=== PATIENT | male | born 1975 | race Caucasian/White ===

== ENCOUNTER 2017-07-11 12:57 | Emergency (ER) | payer OTHER ==
[2017-07-11 13:12] VITALS: TEMP 37
[2017-07-11] MEDS ORDERED: SODIUM CHLORIDE 0.9% 500ML 500 ML IV STA (13:36)
[2017-07-11] MEDS ORDERED: SODIUM CHLORIDE 0.9% 1000ML 1,000 ML IV ONE (13:45)
--- NOTE | 2017-07-11 13:50 | EMERGENCY ROOM VISIT NOTE ---
History First contact with patient: 13:17 Chief Complaint: DIARRHEA Stated Complaint: DIARRHEA FOR PAST MONTH Nursing Triage Summary: pt reports diarrhea x 1 month. pt reports he has been to [facility] and [facility]. pt reports abd pain and that he has lost approx 40 pounds in the past 2-3 weeks. History of Present Illness The patient is a 42 year old male who presents to the Emergency Room with complaints of severe diarrhea that has been going on for approximately 1 month. The patient reports sometimes going up to 20 times per day. He has seen his family physician in addition to a GI specialist. He has had a colonoscopy, which was reportedly normal. He has also had blood work, CT scans and stool cultures. No abnormalities were noted. The patient denies any fever, vomiting or chills. He does get abdominal cramping particularly in the upper abdomen before his bowel movements. His daughter was sick with vomiting prior to his illness. She did not have any diarrhea. Her vomiting only lasted 24 hours. The patient reports feeling dehydrated. He denies any recent travel. He was on antibiotics for an infection in his left leg. He has tested negative for C. difficile. Review of Systems 10 system review performed and negative unless noted in HPI or below Past Medical/Surgical History History of DVTs, on chronic anticoagulation Family History Cardiac disease Social History Smoking Status: Never Smoker Alcohol Use: none Drug Use: none Occupation Status: employed Current/Historical Medications Scheduled Colestipol Hcl (Colestid), 4 GM PO QID Pancrelipase (Lipase-Protease- (Creon), 36,000 UNITS PO TIDM Probiotic Product (Probiotic), 1 TAB PO DAILY Rivaroxaban (Xarelto), 20 MG PO QPM Physical Exam Vital Signs Date Time Temp Pulse Resp B/P (MAP) Pulse Ox O2 Delivery O2 Flow Rate FiO2 07/11/17 16:55 71 16 133/82 99 07/11/17 16:06 71 16 133/82 99 Room Air 07/11/17 14:42 81 18 124/76 96 Room Air 07/11/17 13:12 37.0 99 20 135/79 96 Room Air Physical Exam VITALS: Vitals are noted on the nurse's note and reviewed by myself. Vital signs stable. GENERAL: 42-year-old male, in no acute distress, nondiaphoretic, well-developed well-nourished. SKIN: The skin was without rashes, erythema, edema, or bruising. There is no tenting of the skin. Capillary reflex less than 2 seconds. HEAD: Normocephalic atraumatic. EYES: Extraocular movements intact. MOUTH: Mucous membranes dry. NECK: Supple without nuchal rigidity. No lymphadenopathy. Cervical spine is nontender. No JVD. HEART: Regular rate and rhythm without murmurs gallops or rubs. LUNGS: Clear to auscultation bilaterally without wheezes, rales or rhonchi. No accessory muscle use. ABDOMEN: Bowel sounds present, but hypoactive. Tenderness palpation with deep palpation in the left upper quadrant. Without organomegaly. No guarding or rebound tenderness. MUSCULOSKELETAL: No muscle atrophy, erythema, or edema noted. Strength 5/5 throughout. NEURO: Patient was alert and oriented to person place and time. Normal sensation to touch. No focal neurological deficits. Medical Decision & Procedures Laboratory Results 07/11/17 13:44 Red Blood Count 5.30, Mean Corpuscular Volume 88.9, Mean Corpuscular Hemoglobin 30.8, Mean Corpuscular Hemoglobin Concent 34.6, Mean Platelet Volume 10.4, Neutrophils (%) (Auto) 65.6, Lymphocytes (%) (Auto) 22.9, Monocytes (%) (Auto) 8.4, Eosinophils (%) (Auto) 2.6, Basophils (%) (Auto) 0.3, Neutrophils # (Auto) 4.05, Lymphocytes # (Auto) 1.41, Monocytes # (Auto) 0.52, Eosinophils # (Auto) 0.16, Basophils # (Auto) 0.02 07/11/17 13:44 Test 07/11/17 13:44 White Blood Count 6.17 K/uL (4.8-10.8) Red Blood Count 5.30 M/uL (4.7-6.1) Hemoglobin 16.3 g/dL (14.0-18.0) Hematocrit 47.1 % (42-52) Mean Corpuscular Volume 88.9 fL (80-100) Mean Corpuscular Hemoglobin 30.8 pg (25-34) Mean Corpuscular Hemoglobin Concent 34.6 g/dl (32-36) Platelet Count 158 K/uL (130-400) Mean Platelet Volume 10.4 fL (7.4-10.4) Neutrophils (%) (Auto) 65.6 % Lymphocytes (%) (Auto) 22.9 % Monocytes (%) (Auto) 8.4 % Eosinophils (%) (Auto) 2.6 % Basophils (%) (Auto) 0.3 % Neutrophils # (Auto) 4.05 K/uL (1.4-6.5) Lymphocytes # (Auto) 1.41 K/uL (1.2-3.4) Monocytes # (Auto) 0.52 K/uL (0.11-0.59) Eosinophils # (Auto) 0.16 K/uL (0-0.5) Basophils # (Auto) 0.02 K/uL (0-0.2) RDW Standard Deviation 45.3 fL (36.4-46.3) RDW Coefficient of Variation 13.8 % (11.5-14.5) Immature Granulocyte % (Auto) 0.2 % Immature Granulocyte # (Auto) 0.01 K/uL (0.00-0.02) Anion Gap 6.0 mmol/L (3-11) Estimated GFR () 109.2 Estimated GFR (Non- 94.2 BUN/Creatinine Ratio 9.4 (10-20) Calcium Level 8.9 mg/dl (8.5-10.1) Magnesium Level 2.1 mg/dl (1.8-2.4) Total Bilirubin 1.6 mg/dl (0.2-1) Direct Bilirubin 0.3 mg/dl (0-0.2) Aspartate Amino Transf (AST/SGOT) 31 U/L (15-37) Alanine Aminotransferase (ALT/SGPT) 86 U/L (12-78) Alkaline Phosphatase 110 U/L (45-117) Total Protein 7.0 gm/dl (6.4-8.2) Albumin 3.7 gm/dl (3.4-5.0) Globulin 3.3 gm/dl (2.5-4.0) Albumin/Globulin Ratio 1.1 (0.9-2) Amylase Level 48 U/L (25-115) Lipase 200 U/L (73-393) Date/Time Source Procedure Growth Status 07/11/17 16:45 Stool C.difficile Toxin B Gene (PCR) - Final No C. difficile toxin B gene detected Complete Medications Administered Medications (Trade) Dose Ordered Sig/Rossy Route Start Time Stop Time Status Last Admin Dose Admin Sodium Chloride 1,000 ml @ 999 mls/hr Q1H1M ONCE IV 07/11/17 13:45 07/11/17 14:45 DC 07/11/17 13:49 999 MLS/HR Sodium Chloride 500 ml @ 999 mls/hr Q31M STAT IV 07/11/17 13:36 07/11/17 14:06 DC 07/11/17 13:49 999 MLS/HR ED Course Patient was seen and examined Vital signs including blood pressure were reviewed medications list was verified with patient Labs were obtained, and a saline lock was established The patient was hydrated with 1500 and also normal saline. The patient was reevaluated and resting comfortably in bed. We discussed the results of his workup. He voiced understanding. The case was discussed with Dr. Velasquez from GI. I reviewed discharge instructions the patient. They voiced understanding and had no further questions. Medical Decision Differential diagnosis: Infectious diarrhea, inflammatory bowel disease, pancreatic disease, gallbladder disease, This patient is a 42-year-old male that presents to the emergency department with chronic diarrhea for one month. He does not have any other infectious symptoms. The patient has had an extensive workup including a colonoscopy. Of note, Crohn's disease does run in his family. His workup in the emergency department is fairly unremarkable. His total bilirubin was slightly elevated. He was told that he has a history of fatty liver by his GI specialist.. There is no leukocytosis. He is afebrile. He is adequately taking in liquids. I believe he is stable to be discharged home. The patient was hydrated in the emergency department. He was referred to GI for further testing, possibly an upper endoscopy, small bowel follow-through for capsule endoscopy to further assess his diarrhea. This chart was completed in part utilizing [employer] Voice Recognition software. Attempts were made to minimize the grammatical errors, random word insertions, pronoun errors and incomplete sentences. Any formal questions or concerns about the content, text or information contained within the body of this dictation should be directly addressed to the provider for clarification. Medication Reconcilliation Current Medication List: was personally reviewed by me Consults Time Called: Dr. Velasquez Impression Primary Impression: Chronic diarrhea Departure Information Dispostion Home / Self-Care Condition GOOD Referrals Asim Mohr M.D. (PCP) Alvarez Velasquez MD Patient Instructions [facility] Additional Instructions You had been evaluated in the emergency department for diarrhea. Please continue your current medications as prescribed. Please call Dr. Velasquez's office for a follow-up appointment. Increase your fluids to stay hydrated Please return to the emergency department with any new or worsening symptoms.
[2017-07-11] MEDS ORDERED: RIVA1TAB4 PO (13:53)
[2017-07-11] MEDS ORDERED: COLE1TAB PO (13:53)
[2017-07-11] MEDS ORDERED: PANC6000 PO (13:53)
[2017-07-11] MEDS ORDERED: PROB1TAB16 PO (13:53)
[2017-07-11 14:07] LABS: BASO % 0.3 %; BASO ABS # 0.02 K/uL (0-0.2); COMPLETE YES; EOS % 2.6 %; HEMATOCRIT 47.1 % (42-52); IG% 0.2 %; LYMPH % 22.9 %; LYMPH ABS # 1.41 K/uL (1.2-3.4); MEAN CELL VOLUME 88.9 fL (80-100); MEAN CORPUSCULAR HEMOGLOBIN 30.8 pg (25-34); MEAN CORPUSCULAR HGB CONC 34.6 g/dl (32-36); MEAN PLATELET VOLUME 10.4 fL (7.4-10.4); MONO % 8.4 %; NEUT % 65.6 %; PLATELET COUNT 158 K/uL (130-400); WHITE BLOOD COUNT 6.17 K/uL (4.8-10.8)
[2017-07-11 14:17] LABS: ALT/SGPT 86 U/L (12-78); AMYLASE 48 U/L (25-115); AST/SGOT 31 U/L (15-37); BLOOD UREA NITROGEN 9 mg/dl (7-18); BUN/CREATININE RATIO 9.4 (10-20); CALCIUM 8.9 mg/dl (8.5-10.1); CARBON DIOXIDE 25 mmol/L (21-32); CHLORIDE 112 mmol/L (98-107); CREATININE 0.99 mg/dl (0.60-1.40); GLUCOSE 90 mg/dl (70-99); MAGNESIUM 2.1 mg/dl (1.8-2.4); POTASSIUM 4.1 mmol/L (3.5-5.1); SODIUM 143 mmol/L (136-145)
[2017-07-11 14:19] LABS: ALB/GLOB RATIO 1.1 (0.9-2); ALKALINE PHOSPHATASE 110 U/L (45-117)
[2017-07-11 16:55] VITALS: BP 133/82; PULSE 71; O2SAT 99
== END 2017-07-11 16:56 | disposition home or self-care (01) ==
LOC: C.EDB 12:59 → C.EDA 16:56
DX: R19.7 Diarrhea, unspecified (principal); E86.0 Dehydration; Z86.718 Personal history of other venous thrombosis and embolism; Z79.01 Long term (current) use of anticoagulants

== ENCOUNTER → 2017-11-25 | Outpatient (CLI) | payer OTHER ==
[~2017-11-25] MED LIST: CHOLPOW PO; DIPH-416 PO; METR500T PO; PANC6000 PO; PROB1TAB16 PO; RIVA1TAB4 PO
--- NOTE | 2017-11-25 12:45 | DIAGNOSTIC IMAGING REPORT ---
SMALL BOWEL STUDY CLINICAL HISTORY: Chronic diarrhea. Family history of Crohn's disease 80 pound weight loss COMPARISON STUDY: None FLUOROSCOPY TIME: 1.1 minutes. NUMBER OF FLUOROSCOPIC IMAGES: 12 FINDINGS: The patient was administered Enterovue a small bowel follow-through was performed. Contrast reached the cecum within 2 hours. There is no abnormal loop separation. There are no abnormally dilated loops of jejunum or ileum. Spot films the terminal ileum were normal. IMPRESSION: Normal study Electronically signed by: Manuel Spicer M.D. 11/25/2017 12:44 PM Dictated Date/Time: 11/25/2017 12:42 PM
== END | disposition home or self-care (01) ==
LOC: C.RAD 10:15
PROVIDERS: ATTEND Student in an Organized Health Care Education/Training Program
DX: K52.9 Noninfective gastroenteritis and colitis, unspecified (principal)